=== PATIENT | male | born 1960 | race Caucasian/White ===

== ENCOUNTER 2020-03-13 07:24 | Emergency (ER) | payer MEDICAID ==
[~2020-03-13] VITALS: Ht 177.8 cm; Wt 77.1 kg
--- NOTE | 2020-03-13 07:35 | NUR ---
AT BEDSIDE FOR EVAL.
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
[2020-03-13] MEDS ORDERED: KETOROLAC TROMETHAMINE INJ 30 MG/ML VIAL IM ONE (08:00)
[2020-03-13] MEDS ORDERED: IBUP-1955 PO (08:23)
[2020-03-13 08:32] VITALS: BP 120/68
== END 2020-03-13 08:32 | disposition home or self-care (01) ==
LOC: ER 07:28
DX: R07.89 Other chest pain (principal); M25.562 Pain in left knee; Z59.0 Homelessness; V49.49XA Driver injured in collision with other motor vehicles in traffic accident, initial encounter; Y93.89 Activity, other specified; Y92.488 Other paved roadways as the place of occurrence of the external cause; Y99.8 Other external cause status
CPT/HCPCS: 71045-TC